=== PATIENT | male | born 1975 | race Two or more races ===

== ENCOUNTER 2018-01-08 14:53 | Emergency (ER) | payer MEDICARE, MEDICAID ==
[~2018-01-08] VITALS: Ht 175.3 cm; Wt 113.4 kg
[2018-01-08 15:03] VITALS: BP 134/77
== END 2018-01-08 15:33 | disposition home or self-care (01) ==
LOC: ER 14:56
DX: Z00.8 Encounter for other general examination (principal); F32.9 Major depressive disorder, single episode, unspecified; G89.29 Other chronic pain; M25.559 Pain in unspecified hip
CPT/HCPCS: 99283; A4606; Z7610

== ENCOUNTER 2019-05-06 19:55 | Emergency (ER) | payer MEDICARE, MEDICAID ==
[~2019-05-06] VITALS: Ht 175.3 cm; Wt 90.7 kg
--- NOTE | 2019-05-06 21:10 | NUR ---
PATIENT BIB EMS FROM [facility] C/O SI WITH NO HI. PATIENT STATES HE HEARS VOICES " KILL YOURSELF" "DONT PRAY TO GOD". PATIENT DID NOT SPECIFY HOW HE WAS GOING TO KILL HIMSELF. AAOX4. NO SOB. BREATHING EVENLY AND UNLABORED. CONNECTED TO MONITOR. SITTER AT BEDSIDE
--- NOTE | 2019-05-06 21:18 | NUR ---
URINE COLLECTED AND SENT TO LAB
[2019-05-06] MEDS ORDERED: LABETALOL 20 MG/4 ML VIAL IV ONE (21:30)
[2019-05-06] MEDS ORDERED: LABETALOL HCL IV 100MG VIAL ONE (21:39)
--- NOTE | 2019-05-06 22:44 | NUR ---
CALLED [facility] FOR BLS TRANSPORT TO [facility]. UNABLE TO ACCEPT THE TRANSPORT DUE TO THE PT BEING VOLUNTARY, NOT ON A 5150, AND WITH MEDICARE INSURANCE. THEY SAID MEDICARE WILL NOT PAY FOR THE TRANSPORTATION AND WILL BILL THE HOSPITAL, BUT THEY WILL STILL NOT ACCEPT THE TRANSPORTATION. [employer] THEN SAID TO CALL [facility] [employer] FOR TRANSPORT WHICH IS . AFTER CALLING [facility] [employer] THEY PROVIDED: ETA: 3 HOURS RUN #: [id number]
[2019-05-06] MEDS ORDERED: NIFEdipine XL (30MG) 30 MG TAB PO SCH (23:00)
[2019-05-06] MEDS ORDERED: NIFEdipine (10MG) 10 MG CAPSULE ONE (23:17)
[2019-05-07 00:16] VITALS: BP 142/75
== END 2019-05-07 00:18 ==
LOC: ER 19:59
DX: I10 Essential (primary) hypertension (principal); F32.9 Major depressive disorder, single episode, unspecified
CPT/HCPCS: 96374; 99285; J3490

== ENCOUNTER 2019-05-16 19:06 | Emergency (ER) | payer MEDICARE, OTHER ==
[~2019-05-16] VITALS: Ht 172.7 cm; Wt 136.1 kg
[2019-05-16 19:24] LABS: BASOPHILS # (AUTO) 0.2 /CMM (0.0-0.2); BASOPHILS % (AUTO) 1.7 % (0.0-2.0); EOSINOPHILS % (AUTO) 1.9 % (0.0-6.0); HEMATOCRIT 42 % (39-51); HEMOGLOBIN 14.1 g/dL (13.5-17.5); LYMPHOCYTES # (AUTO) 2.5 /CMM (0.8-4.8); LYMPHOCYTES % (AUTO) 22.6 % (20.0-44.0); MEAN CORPUSCULAR HGB CONC 34 g/dl (31.0-36.0); MEAN CORPUSCULAR VOLUME 80 fL (80-96); MONOCYTES # (AUTO) 0.5 /CMM (0.1-1.30); NEUTROPHILS # (AUTO) 7.6 /CMM (1.8-8.9); NEUTROPHILS % (AUTO) 68.8 % (43.0-81.0); PLATELET COUNT (AUTO) 302 /CMM (150-450); RED BLOOD CELL COUNT(AUTO) 5.25 MIL/uL (4.5-6.0)
[2019-05-16] MEDS ORDERED: LORAZEPAM INJ 2 MG/ML VIAL ONE (19:29)
[2019-05-16] MEDS ORDERED: ONDANSETRON HCL/PF 4 MG/2 ML VIAL ONE (19:29)
[2019-05-16] MEDS ORDERED: IV NS 0.9% 1,000 ML BAG IV ONE (19:30)
[2019-05-16] MEDS ORDERED: LORAZEPAM INJ 2 MG/ML VIAL IV ONE (19:30)
[2019-05-16] MEDS ORDERED: ONDANSETRON HCL/PF 4 MG/2 ML VIAL IVP ONE (19:30)
[2019-05-16 19:31] LABS: CALCIUM, SERUM 9.4 mg/dL (8.5-10.1); CARBON DIOXIDE 31 mmol/L (21-32); CHLORIDE 103 mmol/L (98-107); CREATININE 1.3 mg/dL (0.6-1.3); GLUCOSE 203 mg/dL (74-106); POTASSIUM 3.7 mmol/L (3.5-5.1); SODIUM SERUM 141 mmol/L (136-145); UREA NITROGEN, BLOOD 18 mg/dL (7-18)
--- NOTE | 2019-05-16 19:32 | NUR ---
iv started rac iv#20. blood drawn and sent to lab.
[2019-05-16 19:37] LABS: ALANINE AMINOTRANSFERASE 31 U/L (12-78); ALBUMIN 3.8 g/dL (3.4-5.0); ALKALINE PHOSPHATASE 88 U/L (46-116); ASPARTATE AMINOTRANSFERASE 23 U/L (15-37); BILIRUBIN,DIRECT 0.3 mg/dL (0.0-0.2); BILIRUBIN,TOTAL 0.7 mg/dL (0.2-1.0); LIPASE 144 U/L (73-393); TOTAL PROTEIN, SERUM 7.2 g/dL (6.4-8.2)
--- NOTE | 2019-05-16 19:38 | NUR ---
pt medicated as ordered by dr pierre.
--- NOTE | 2019-05-16 19:55 | NUR ---
SHIRLEY TO ER BED 13. SLEEPING EASILY ARROUSABLE BY TOUCH. AGITATED AND JITTERY. ADMITS TO METH USE YESTERDAY. C/O FOR VOMITING X 1 EPISODE AFTER EATING A DONUT. PT NOTED WITH 1 EPISODE OF SMALL VOMITING OF FOOD CONTENT. MD WAS AT BEDSIDE. ORDERS RECEIVED, NOTED AND CARRIED OUT. WILL CONTINUE TO MONITOR
--- NOTE | 2019-05-16 20:36 | NUR ---
pt sleeping in rsan rafael. no signs of distress noted. pt vital signs stable. will cont to monitor pt.
--- NOTE | 2019-05-17 01:57 | NUR ---
PT IN BED SLEEPING. NAD NOTED.
[2019-05-17] MEDS ORDERED: ONDANSETRON HCL/PF 4 MG/2 ML VIAL ONE (03:12)
[2019-05-17] MEDS ORDERED: ONDANSETRON HCL/PF 4 MG/2 ML VIAL IVP ONE (03:30)
--- NOTE | 2019-05-17 04:10 | NUR ---
Patient discharged to home in stable condition. Written and verbal after care instructions given. Patient verbalizes understanding of instruction.IV removed. Catheter intact and site benign. Pressure and 4x4 applied to site. No bleeding noted. Pt ambulatory with a steady gait
--- NOTE | 2019-05-17 04:10 | NUR ---
HOMELESS WAIVER SIGNED BY PT, RESOURCES PROVIDED, PROVIDED FOOD AND NEW CLOTHING.
[2019-05-17 04:11] VITALS: BP 158/97
== END 2019-05-17 04:17 | disposition home or self-care (01) ==
LOC: ER 19:08
DX: R11.2 Nausea with vomiting, unspecified (principal); G89.29 Other chronic pain; R00.0 Tachycardia, unspecified
CPT/HCPCS: 36415; 71045; 80048; 80076; 83690; 84484; 85025; 93005; 96361; 96374; 96375; 96376; 99285; J2060; J2405 ×2

== ENCOUNTER 2019-05-23 16:57 | Emergency (ER) | payer MEDICARE, OTHER ==
[~2019-05-23] VITALS: Ht 177.8 cm; Wt 136.1 kg
[2019-05-23 17:38] LABS: BASOPHILS # (AUTO) 0.1 /CMM (0.0-0.2); BASOPHILS % (AUTO) 0.8 % (0.0-2.0); EOSINOPHILS % (AUTO) 1.4 % (0.0-6.0); HEMATOCRIT 43 % (39-51); HEMOGLOBIN 14.4 g/dL (13.5-17.5); LYMPHOCYTES # (AUTO) 1.9 /CMM (0.8-4.8); LYMPHOCYTES % (AUTO) 24.1 % (20.0-44.0); MEAN CORPUSCULAR HGB CONC 34 g/dl (31.0-36.0); MEAN CORPUSCULAR VOLUME 81 fL (80-96); MONOCYTES # (AUTO) 0.6 /CMM (0.1-1.30); MONOCYTES % (AUTO) 6.9 % (2.0-12.0); NEUTROPHILS # (AUTO) 5.4 /CMM (1.8-8.9); NEUTROPHILS % (AUTO) 66.8 % (43.0-81.0); PLATELET COUNT (AUTO) 264 /CMM (150-450); RED BLOOD CELL COUNT(AUTO) 5.33 MIL/uL (4.5-6.0)
[2019-05-23 17:48] LABS: CALCIUM, SERUM 9.4 mg/dL (8.5-10.1); CARBON DIOXIDE 28 mmol/L (21-32); CHLORIDE 108 mmol/L (98-107); GLUCOSE 154 mg/dL (74-106); POTASSIUM 4.1 mmol/L (3.5-5.1); SODIUM SERUM 147 mmol/L (136-145); UREA NITROGEN, BLOOD 21 mg/dL (7-18)
[2019-05-23 17:54] LABS: APPEARANCE,URINE Clear (CLEAR); BILIRUBIN,URINE SMALL (NEGATIVE); BLOOD, URINE Negative Ery/uL (NEGATIVE); COLOR,URINE Dark (YELLOW); KETONES,URINE 15 (NEGATIVE); LEUKOCYTE ESTERASE ,URINE Negative (NEGATIVE); NITRITE, URINE Negative (NEGATIVE); PROTEIN,URINE 30 mg/dl (NEGATIVE); UGLUCOSE Negative (NEGATIVE)
[2019-05-23 17:55] LABS: ALANINE AMINOTRANSFERASE 31 U/L (12-78); ALBUMIN 3.9 g/dL (3.4-5.0); ALCOHOL, BLOOD < 3 mg/dL (0-0); ALKALINE PHOSPHATASE 83 U/L (46-116); ASPARTATE AMINOTRANSFERASE 35 U/L (15-37); BILIRUBIN,DIRECT 0.4 mg/dL (0.0-0.2); BILIRUBIN,TOTAL 1.2 mg/dL (0.2-1.0); TOTAL PROTEIN, SERUM 7.7 g/dL (6.4-8.2)
[2019-05-23 17:57] LABS: ACETAMINOPHEN < 2 ug/ml (10-30); SALICYLATE < 0.2 mg/dL (2.8-20.0)
[2019-05-23 18:08] LABS: BACTERIA,URINE Rare /HPF (None Seen); RBC,URINE NONE SEEN /HPF (0-2); SQUAMOUS EPITHELIAL CELL,UR Few /HPF (None Seen); WBC,URINE NONE SEEN /HPF (0-3)
--- NOTE | 2019-05-23 18:21 | NUR ---
PAGED PLASTIC FABRICATOR MIXER DRIVER PAKO HARDEN RN FOR EVAL. ETA 1.5HR
--- NOTE | 2019-05-23 19:30 | NUR ---
ASSUMED CARE FOR PATIENT AT THIS TIME. PT RESTING COMFORTABLY IN BED. PT REMAINS CALM AND COOPERATIVE. VITAL SIGNS STABLE. SITTER AT BEDSIDE. WILL CONTINUE TO MONITOR
--- NOTE | 2019-05-23 20:00 | NUR ---
PAKO RN AT BEDSIDE FOR EVALUATION
[2019-05-23 20:33] VITALS: BP 148/80
--- NOTE | 2019-05-23 20:36 | NUR ---
Patient given written and verbal discharge instructions. Patient verbalizes understanding of instructions. Patient is ambulatory with steady gait. Refuses offer of nursing home placement. Patient given list of available shelters in surrounding area.
== END 2019-05-23 20:38 | disposition home or self-care (01) ==
LOC: ER 17:03
DX: F29 Unspecified psychosis not due to a substance or known physiological condition (principal); F15.10 Other stimulant abuse, uncomplicated; E86.0 Dehydration; F20.9 Schizophrenia, unspecified; F32.9 Major depressive disorder, single episode, unspecified; E66.01 Morbid (severe) obesity due to excess calories; Z68.41 Body mass index [BMI] 40.0-44.9, adult; Z59.0 Homelessness
CPT/HCPCS: 36415; 80048; 80076; 80305; 80307; 80329; 81001; 85025; 99284; G0480; 81000-TC

== ENCOUNTER 2019-05-25 02:16 | Emergency (ER) | payer MEDICARE, OTHER ==
[~2019-05-25] VITALS: Ht 160 cm; Wt 131.5 kg
--- NOTE | 2019-05-25 02:29 | NUR ---
PT CAME TO ER BED 15 C/O SUICIDAL IDEATION. PT STATES HE PLANS TO OVERDOSE ON HEROIN. AAOX4. NO SOB. BREATHING EVENLY AND UNLABORED CONNECTED TO MONITOR. SITTER AT BEDSIDE.
--- NOTE | 2019-05-25 02:30 | NUR ---
PT UNABLE TO PROVIDE URINE SAMPLE AT THIS TIME. ER AWARE
--- NOTE | 2019-05-25 02:48 | NUR ---
SUPERVISOR ACCOUNTING CLERKS AT BEDSIDE FOR BLOOD DRAW
[2019-05-25] MEDS ORDERED: ACETAMINOPHEN 325 MG TABLET ONE (03:15)
[2019-05-25] MEDS ORDERED: ACETAMINOPHEN 325 MG TABLET PO ONE (03:30)
--- NOTE | 2019-05-25 03:32 | NUR ---
PT JIA. UNABLE TO OBTAIN BLOOD SAMPLE. ER AWARE
[2019-05-25 03:57] LABS: BASOPHILS # (AUTO) 0.1 /CMM (0.0-0.2); EOSINOPHILS % (AUTO) 1.8 % (0.0-6.0); HEMATOCRIT 46 % (39-51); HEMOGLOBIN 15.3 g/dL (13.5-17.5); LYMPHOCYTES # (AUTO) 2.5 /CMM (0.8-4.8); LYMPHOCYTES % (AUTO) 31.5 % (20.0-44.0); MEAN CORPUSCULAR HGB CONC 33 g/dl (31.0-36.0); MEAN CORPUSCULAR VOLUME 83 fL (80-96); MONOCYTES # (AUTO) 0.4 /CMM (0.1-1.30); MONOCYTES % (AUTO) 5.2 % (2.0-12.0); NEUTROPHILS # (AUTO) 4.8 /CMM (1.8-8.9); NEUTROPHILS % (AUTO) 60.5 % (43.0-81.0); PLATELET COUNT (AUTO) 262 /CMM (150-450); RED BLOOD CELL COUNT(AUTO) 5.57 MIL/uL (4.5-6.0)
--- NOTE | 2019-05-25 04:00 | NUR ---
URINE COLLECTED AND SENT TO LAB
[2019-05-25 04:04] LABS: CALCIUM, SERUM 9.3 mg/dL (8.5-10.1); CARBON DIOXIDE 27 mmol/L (21-32); CHLORIDE 103 mmol/L (98-107); CREATININE 0.8 mg/dL (0.6-1.3); GLUCOSE 161 mg/dL (74-106); POTASSIUM 3.8 mmol/L (3.5-5.1); SODIUM SERUM 142 mmol/L (136-145); UREA NITROGEN, BLOOD 18 mg/dL (7-18)
--- NOTE | 2019-05-25 04:04 | NUR ---
ON CONSTANT OBSERVATION W/ SITTER AT BEDSIDE FOR SAFETY. ROM ACTIVE FOR ALL EXTREMITIES
[2019-05-25 04:10] LABS: APPEARANCE,URINE Clear (CLEAR); BILIRUBIN,URINE Negative (NEGATIVE); BLOOD, URINE Negative Ery/uL (NEGATIVE); COLOR,URINE Yellow (YELLOW); KETONES,URINE Negative (NEGATIVE); LEUKOCYTE ESTERASE ,URINE Negative (NEGATIVE); NITRITE, URINE Negative (NEGATIVE); PROTEIN,URINE 30 mg/dl (NEGATIVE); UGLUCOSE 100 MG/DL mg/dL (NEGATIVE)
[2019-05-25 04:17] LABS: ACETAMINOPHEN 0 ug/ml (10-30); ALANINE AMINOTRANSFERASE 36 U/L (12-78); ALBUMIN 4.2 g/dL (3.4-5.0); ALCOHOL, BLOOD < 3 mg/dL (0-0); ALKALINE PHOSPHATASE 92 U/L (46-116); ASPARTATE AMINOTRANSFERASE 44 U/L (15-37); BILIRUBIN,DIRECT 0.2 mg/dL (0.0-0.2); BILIRUBIN,TOTAL 0.6 mg/dL (0.2-1.0); SALICYLATE 0.3 mg/dL (2.8-20.0); TOTAL PROTEIN, SERUM 8.2 g/dL (6.4-8.2)
[2019-05-25 04:33] LABS: BACTERIA,URINE Few /HPF (None Seen); SQUAMOUS EPITHELIAL CELL,UR Rare /HPF (None Seen)
--- NOTE | 2019-05-25 04:56 | NUR ---
CLINICAL INFORMATION FAXED TO [facility]
--- NOTE | 2019-05-25 05:52 | NUR ---
PT APPEARS TO BE COMFORTABLY RESTING. ON 1:1 CONSTANT OBSERVATION W/ SITTER AT BEDSIDE. NO ACUTE DISTRESS NOTED.
[2019-05-25] MEDS ORDERED: LORAZEPAM 1 MG TABLET ONE (05:59)
[2019-05-25] MEDS ORDERED: LORAZEPAM 1 MG TABLET PO ONE (06:00)
--- NOTE | 2019-05-25 06:00 | NUR ---
TRANSFER INFORMATION: PT ACCEPTED TO [facility] ACCEPTING MD: DR. QUEVEDO NUMBER FOR REPORT: [phone] UNIT 1
--- NOTE | 2019-05-25 06:06 | NUR ---
PROVIDED WITH FOOD AND JUICE PER PT REQUEST. FOOD THROWN ONTO FLOOR
--- NOTE | 2019-05-25 06:14 | NUR ---
PT STATES "I WANT TO GO HOME. I WAS NEVER SUICIDAL, I NEVER SAID THAT. I DON'T KNOW WHAT I WAS THINKING". ER MD AWARE, WILL CALL FRANCHISE BROKER FOR EVALUATION.
--- NOTE | 2019-05-25 06:58 | NUR ---
LISSETTE PÉREZ AT BEDSIDE FOR REEVALUATION
--- NOTE | 2019-05-25 07:12 | NUR ---
PT MEDICALLY CLEARED FOR DISCHARGE. INFORMED ANDREA FROM [facility].
--- NOTE | 2019-05-25 07:19 | NUR ---
Patient given written and verbal discharge instructions. Patient verbalizes understanding of instructions. Patient is ambulatory with steady gait. Refuses offer of care home placement. Patient given list of available shelters in surrounding area.
[2019-05-25 07:31] VITALS: BP 158/91
== END 2019-05-25 07:31 | disposition home or self-care (01) ==
LOC: ER 02:17
DX: R45.851 Suicidal ideations (principal); F32.9 Major depressive disorder, single episode, unspecified; Z59.0 Homelessness
CPT/HCPCS: 36415; 80048; 80076; 80305; 80307; 80329; 81001; 82962; 85025; 87086; 99283; G0480; 81000-TC

== ENCOUNTER 2020-01-18 03:31 | Emergency (ER) | payer MEDICARE, OTHER ==
[~2020-01-18] VITALS: Ht 177.8 cm; Wt 139.7 kg
--- NOTE | 2020-01-18 03:38 | NUR ---
PT AAOX4. AMBULATORY WITH STEADY GAIT. [facility] [address] C/O PAIN ON BACK FROM [facility] TODAY, -LOC. MD AT BEDSIDE FOR EVAL. AWAITING MD ORDERS.
[2020-01-18] MEDS ORDERED: KETOROLAC TROMETHAMINE INJ 30 MG/ML VIAL ONE (03:44)
[2020-01-18] MEDS ORDERED: CYCLOBENZAPRINE 10 MG TABLET ONE (03:44)
--- NOTE | 2020-01-18 03:52 | NUR ---
RADIOLOGY AT BEDSIDE
[2020-01-18] MEDS ORDERED: CYCLOBENZAPRINE 10 MG TABLET PO ONE (04:00)
[2020-01-18] MEDS ORDERED: KETOROLAC TROMETHAMINE INJ 60 MG/2 ML VIAL IM ONE (04:00)
--- NOTE | 2020-01-18 06:03 | NUR ---
Patient discharged to home in stable condition. Written and verbal after care instructions given. Patient verbalizes understanding of instruction. Pt ambulated with steady gait. vss.
[2020-01-18 06:04] VITALS: BP 129/75
== END 2020-01-18 06:04 | disposition home or self-care (01) ==
LOC: ER 03:33
DX: M54.5 Low back pain (principal); F32.9 Major depressive disorder, single episode, unspecified; Z59.0 Homelessness; W18.39XA Other fall on same level, initial encounter; Y93.89 Activity, other specified; Y92.89 Other specified places as the place of occurrence of the external cause; Y99.8 Other external cause status
CPT/HCPCS: 72110; 96372; 99283; J1885

== ENCOUNTER 2020-01-20 11:02 | Emergency (ER) | payer MEDICARE, OTHER ==
[~2020-01-20] VITALS: Ht 177.8 cm; Wt 140.6 kg
[2020-01-20 11:05] VITALS: BP 124/99
--- NOTE | 2020-01-20 11:05 | NUR ---
Patient does not wish to proceed with medical care recommended by Dr. Giraldo. Patient given information related to possible complications, up to and including , which could occur as a result of leaving the hospital at this time. Patient verbalizes understanding of risks involved due to leaving against medical advice. Patient has signed AMA form.
== END 2020-01-20 12:09 | disposition left against medical advice (07) ==
LOC: ER 11:06
DX: M54.5 Low back pain (principal); G89.29 Other chronic pain; F32.9 Major depressive disorder, single episode, unspecified; Z59.0 Homelessness

== ENCOUNTER 2020-01-21 01:02 | Emergency (ER) | payer MEDICARE, OTHER ==
[~2020-01-21] VITALS: Ht 177.8 cm; Wt 139.7 kg
--- NOTE | 2020-01-21 01:11 | NUR ---
[facility] C/O SI WITH PLAN TO OD ON DRUGS. DENIES HI. PT PLACED IN GOWN, ON MONITOR, AND PULSE OX. PT PLACED IN BED 13. BELONINGS PLACED IN LOCKER. SITTER AT BEDSIDE. AWAITING MD FOR EVAL AND ORDERS. WILL CONTINUE TO MONITOR.
--- NOTE | 2020-01-21 01:29 | NUR ---
SLIVER LAPPER AT BEDSIDE FOR LAB WORK. URINE SENT TO LAB.
[2020-01-21 01:53] LABS: BASOPHILS % (AUTO) 0.5 % (0.0-2.0); EOSINOPHILS % (AUTO) 1.7 % (0.0-6.0); HEMATOCRIT 43 % (39-51); HEMOGLOBIN 14.5 g/dL (13.5-17.5); LYMPHOCYTES # (AUTO) 2.9 /CMM (0.8-4.8); LYMPHOCYTES % (AUTO) 31.9 % (20.0-44.0); MEAN CORPUSCULAR HGB CONC 34 g/dl (31.0-36.0); MEAN CORPUSCULAR VOLUME 82 fL (80-96); MONOCYTES # (AUTO) 0.7 /CMM (0.1-1.30); MONOCYTES % (AUTO) 7.3 % (2.0-12.0); NEUTROPHILS # (AUTO) 5.3 /CMM (1.8-8.9); NEUTROPHILS % (AUTO) 58.6 % (43.0-81.0); PLATELET COUNT (AUTO) 244 /CMM (150-450); RED BLOOD CELL COUNT(AUTO) 5.26 MIL/uL (4.5-6.0); WHITE BLOOD COUNT (AUTO) 9.1 K/uL (4.3-11.0)
[2020-01-21 02:07] LABS: CALCIUM, SERUM 8.8 mg/dL (8.5-10.1); CARBON DIOXIDE 31 mmol/L (21-32); CHLORIDE 100 mmol/L (98-107); CREATININE 1.1 mg/dL (0.6-1.3); GLUCOSE 311 mg/dL (74-106); SODIUM SERUM 137 mmol/L (136-145); UREA NITROGEN, BLOOD 20 mg/dL (7-18)
[2020-01-21 02:13] LABS: ALANINE AMINOTRANSFERASE 45 U/L (12-78); ALBUMIN 3.5 g/dL (3.4-5.0); ALCOHOL, BLOOD < 3 mg/dL (0-0); ALKALINE PHOSPHATASE 98 U/L (46-116); ASPARTATE AMINOTRANSFERASE 35 U/L (15-37); BILIRUBIN,DIRECT 0.1 mg/dL (0.0-0.2); BILIRUBIN,TOTAL 0.4 mg/dL (0.2-1.0); TOTAL PROTEIN, SERUM 7.2 g/dL (6.4-8.2)
[2020-01-21 02:14] LABS: ACETAMINOPHEN < 2 ug/ml (10-30)
[2020-01-21] MEDS ORDERED: METFORMIN 500 MG TABLET PO ONE (02:30)
[2020-01-21 02:36] LABS: APPEARANCE,URINE CLEAR (CLEAR); BILIRUBIN,URINE NEGATIVE (NEGATIVE); BLOOD, URINE NEGATIVE Ery/uL (NEGATIVE); COLOR,URINE YELLOW (YELLOW); LEUKOCYTE ESTERASE ,URINE NEGATIVE (NEGATIVE); NITRITE, URINE NEGATIVE (NEGATIVE); PROTEIN,URINE NEGATIVE (NEGATIVE); UGLUCOSE >=1000 mg/dL (NEGATIVE); UROBILINOGEN,URINE 0.2 EU/dL (0.2)
[2020-01-21 02:42] LABS: BACTERIA,URINE None seen /HPF (None Seen); RBC,URINE 0-2 /HPF (0-2); SQUAMOUS EPITHELIAL CELL,UR Few /HPF (None Seen); WBC,URINE 0-2 /HPF (0-3)
[2020-01-21 02:43] LABS: CALCIUM OXALATE CRYSTALS,UR Many /HPF (None Seen)
--- NOTE | 2020-01-21 03:31 | NUR ---
CLINICAL FAXED TO [facility] FOR VOLUNT[facility] PSYCH ADMISSION.
[2020-01-21] MEDS ORDERED: METFORMIN 500 MG TABLET ONE (03:54)
[2020-01-21] MEDS ORDERED: INSULIN REGULAR, HUMAN 100 UNIT/ML 10 ML VIAL ONE ×2 (04:28→07:37)
[2020-01-21] MEDS ORDERED: INSULIN REGULAR, HUMAN 100 UNIT/ML 10 ML VIAL SQ ONE ×3 (04:30→07:30)
--- NOTE | 2020-01-21 05:32 | NUR ---
Patient is resting comfortably in bed with eyes closed. Easily aroused. VSS
--- NOTE | 2020-01-21 05:32 | NUR ---
BG 319, PER GIVE 5UNITS OF INSULIN R.
--- NOTE | 2020-01-21 08:23 | NUR ---
PATIENT ACCEPTED AT [facility] UNDER DR. MORA AND DR. DUNAWAY TO UNIT 2, PHONE # FOR REPORT: [phone] EXT. [phone]
[2020-01-21 08:27] VITALS: BP 154/100
--- NOTE | 2020-01-21 08:39 | NUR ---
CALLED [facility] FOR TRANSPORT TO [facility]. ETA 1400 DUE TO BARIATRIC PATIENT.
--- NOTE | 2020-01-21 08:40 | NUR ---
REPORT GIVEN TO ELISEO LEWIS AT [facility]
--- NOTE | 2020-01-21 11:09 | NUR ---
YORDAN AWARE PT IS TO BE PICKED UP AT 1400.
--- NOTE | 2020-01-21 14:41 | NUR ---
[facility] AT BEDSIDE FOR PT TRANSPORT TO [facility] WITH 3 AMBULANCE STAFF. REPORT GIVEN. PT IS IN STABLE CONDITION FOR TRANSPORT
== END 2020-01-21 14:50 ==
LOC: ER 01:02
DX: R45.851 Suicidal ideations (principal); F31.9 Bipolar disorder, unspecified; G89.29 Other chronic pain; Z59.0 Homelessness; E11.65 Type 2 diabetes mellitus with hyperglycemia; Z20.828 Contact with and (suspected) exposure to other viral communicable diseases
CPT/HCPCS: 36415; 80048; 80076; 80299; 80307; 80320; 81001; 82962 ×3; 85025; 87426; 96372 ×2; 99285; J1815 ×2; 81000-TC; C9803; G0480